=== PATIENT | female | born 1975 | race Caucasian/White ===

== ENCOUNTER → 2017-07-30 | Outpatient (CLI) | payer MEDICARE, OTHER ==
[~2017-07-30] MED LIST: ATARAX,VISTARIL25 MG PO; BUSPAR15 MG PO; CYCLOBENZAPRINE10 M1 PO; CYMBALTA30 MG PO; DELTASONE20 M1 PO; DILAUDID2 MG PO; Duragesic; ENDOCET 5-3251 EACH PO; Flexeril PO; LISINOPRIL20 MG PO; LYRICA75 MG PO; METAMUCIL C1 CAPSULE PO; MORPHINE PAIN PUMP EPID; NAPROXEN SODIU500 MG PO; NAPROXEN500 MG PO; NORTRIPTYLINE PO; PEPCID40 MG PO; PERCOCET 7.5-51 EACH PO; PRAVASTATIN SOD40 MG PO; PREDNISONE20 MG PO; PRILOSEC20 MG PO; PRINIVIL10 MG PO; PROTONIX40 MG PO; Pravachol PO; ROXICODONE15 MG PO; SENNA8.6 MG PO; SENOKOT S,PE1 TABLET PO; SENOKOT,SENN1 TABLET PO; VENTOLIN HFA18 GM IH; Vitamin D, Drisdol PO; ZANAFLEX4 M1 PO; ZESTRIL10 MG PO; ZITHROMAX Z-PA250 MG PO; ZYRTEC10 M3 PO; Zantac PO; [UNRECOGNIZED DRUG - OTHER] PO
== END | disposition home or self-care (01) ==
LOC: CDC 09:21
DX: Z01.810 Encounter for preprocedural cardiovascular examination (principal)
CPT/HCPCS: 93000

== ENCOUNTER 2017-08-11 06:35 | Day surgery (SDC) | payer OTHER ==
[~2017-08-11] VITALS: Ht 167.6 cm; Wt 86.2 kg
[2017-08-11 07:13] VITALS: BP 190/92
[2017-08-11] MEDS ORDERED: ENDOCET 5-3251 EACH PO (09:56)
[2017-08-11 11:30] VITALS: BP 152/81
[2017-08-11 12:30] VITALS: BP 158/79
== END 2017-08-11 12:33 | disposition home or self-care (01) ==
LOC: SDC 06:35
DX: N92.6 Irregular menstruation, unspecified (principal); N84.1 Polyp of cervix uteri; L91.8 Other hypertrophic disorders of the skin; Z98.51 Tubal ligation status; E78.5 Hyperlipidemia, unspecified; I10 Essential (primary) hypertension; E66.9 Obesity, unspecified; Z68.33 Body mass index [BMI] 33.0-33.9, adult; K21.9 Gastro-esophageal reflux disease without esophagitis; K58.9 Irritable bowel syndrome, unspecified; F17.200 Nicotine dependence, unspecified, uncomplicated; Z82.49 Family history of ischemic heart disease and other diseases of the circulatory system; Z83.3 Family history of diabetes mellitus; Z82.3 Family history of stroke; Z80.3 Family history of malignant neoplasm of breast
CPT/HCPCS: 88304; 88305; J0131; J1100; J1170; J1885; J2250; J2405; J3010